=== PATIENT | female | born 1945 | race Caucasian/White ===

== ENCOUNTER 2024-12-12 08:45 | Day surgery (SDC) | payer MEDICARE, OTHER ==
[2024-12-12] MEDS ORDERED: Lidocaine 1% PF 2 ML SDV IV ONE (08:46)
[2024-12-12] MEDS ORDERED: Propofol 200 MG/20 ML SDV IV ONE (08:46)
[2024-12-12] MEDS ORDERED: Sodium Chloride 0.9% 10 ML Syringe FLUSH PRN (08:59)
[2024-12-12] MEDS: Lactated Ringers 1,000 ML IV SCH (09:28)
[2024-12-12] MEDS: Simethicone Drops 40 MG/0.6 ML 30 ML Bottle ONE (10:12)
== END 2024-12-12 11:25 | disposition home or self-care (01) ==
LOC: FB.SDS 08:45
PROVIDERS: ATTEND Surgery
DX: Z12.11 Encounter for screening for malignant neoplasm of colon (principal); K57.30 Diverticulosis of large intestine without perforation or abscess without bleeding; I10 Essential (primary) hypertension; E78.5 Hyperlipidemia, unspecified
CPT/HCPCS: 00811; 88305; 99100; A9270-GY; J2003; J2704; J7120